=== PATIENT | male | born 1985 ===

== ENCOUNTER 2017-03-01 15:30 | Emergency (ER) | payer MEDICAID ==
[2017-03-01 15:30] VITALS: BMI 29.4
--- NOTE | 2017-03-01 16:01 | ED PDOC ---
Arrival/HPI - General Time Seen by Provider: 03/01/17 15:43 Historian: Patient - History of Present Illness Narrative History of Present Illness (Text): 03/01/17 16:03 31 y/o male, pmh including chronic bilateral knee pain, nkda, c/o bilateral knee pain x 2 days after heavy lifting and walking by moving the furniture. Pt. stated that the rt. knee joint is more painful, no calf pain, no fever or chills, no cold extremities, no dizziness, no numbness or tingling, no other medical or psychological complaints. Past Medical History - Provider Review Nursing Documentation Reviewed: Yes - Past History Past History: No Previous - Infectious Disease Hx of Infectious Diseases: None - Tetanus Immunization Tetanus Immunization: Unknown - Past Medical History Past Medical History: No Previous - Cardiac Hx Cardiac Disorders: No - Pulmonary Hx Respiratory Disorders: No - Neurological Hx Neurological Disorder: No - HEENT Hx HEENT Disorder: No - Renal Hx Renal Disorder: No - Endocrine/Metabolic Hx Endocrine Disorders: No - Hematological/Oncological Hx Blood Disorders: No - Integumentary Hx Dermatological Disorder: No - Musculoskeletal/Rheumatological Hx Back Pain: Yes Hx Falls: No Hx Fractures: Yes (left ankle with sx) - Gastrointestinal Hx Gastrointestinal Disorders: No - Genitourinary/Gynecological Hx Genitourinary Disorders: No - Psychiatric Hx Anxiety: Yes Hx Depression: Yes Hx Substance Use: No - Surgical History Hx Orthopedic Surgery: Yes (left ankle c/ screws) - Anesthesia Hx Anesthesia: Yes Hx Anesthesia Reactions: No - Suicidal Assessment Feels Threatened In Home Enviroment: No Family/Social History - Physician Review Nursing Documentation Reviewed: Yes Family/Social History: Unknown Family HX Smoking Status: Light Smoker < 10 Cigarettes Daily Hx Alcohol Use: No Hx Substance Use: No Hx Substance Use Treatment: No Allergies/Home Meds Allergies/Adverse Reactions: Allergies corn Allergy (Verified 10/26/16 10:04) HEADACHE peanut Allergy (Verified 10/26/16 10:04) ANAPHYLAXIS plantain Allergy (Verified 10/26/16 10:04) HEADACHE Review of Systems - Review of Systems Constitutional: absent: Fatigue, Fevers Eyes: absent: Vision Changes ENT: absent: Hearing Changes Respiratory: absent: Cough, Sputum Gastrointestinal: absent: Abdominal Pain, Nausea, Vomiting Musculoskeletal: Arthralgias, Joint Swelling. absent: Back Pain, Neck Pain, Myalgias Skin: absent: Rash, Pruritis, Skin Lesions Neurological: absent: Headache, Dizziness, Speech Changes, Facial Droop Physical Exam Vital Signs Temp Pulse Resp BP Pulse Ox 03/01/17 15:30 98.6 F 85 16 144/72 99 Pain Distress: None Mental Status: Positive for: Alert and Oriented X 3 - Systems Exam Head: Present: Atraumatic, Normocephalic Pupils: Present: PERRL Extroacular Muscles: Present: EOMI Conjunctiva: Present: Normal Ears: Present: NORMAL TM, Normal Canal. No: Erythema Mouth: Present: Moist Mucous Membranes Pharnyx: No: ERYTHEMA, EXUDATE, TONSILS ENLARGED, Peritonsilar Swelling, Uvular Deviation Nose (External): Present: Atraumatic. No: Abrasion, Contusion, Laceration Nose (Internal): Present: Normal Inspection, No Active Bleeding. No: Rhinorrhea , Septal Hematoma, Epistaxis Neck: Present: Normal Range of Motion, Trachea Midline. No: MIDLINE TENDERNESS , Paraspinal Tenderness, Lymphadenopathy Respiratory/Chest: Present: Clear to Auscultation, Good Air Exchange. No: Respiratory Distress, Accessory Muscle Use, Wheezes, Decreased Breath Sounds, Rales, Retracting, Rhonchi, Tachypneic Cardiovascular: Present: Regular Rate and Rhythm, Normal S1, S2. No: Murmurs Abdomen: Present: Normal Bowel Sounds. No: Tenderness, Distention, Peritoneal Signs Back: Present: Normal Inspection Upper Extremity: Present: Normal Inspection. No: Cyanosis, Edema Lower Extremity: Present: Normal Inspection, Other (Bilateral knees: +ttp on the medial aspect of the knee with mild swelling plus no erythematous and no streaking, lt. knee with no tenderness or swelling with no cellulitis or streaking, negative [place]me[place] signs, FROM without limitation, sensation intact,motor 5/5, +DPPT pulses, capillary refill< 2 seconds, neurovascular intact. ). No: Edema Neurological: Present: GCS=15, Speech Normal, Motor Func Grossly Intact, Gait Normal, Memory Normal Skin: Present: Warm, Dry, Normal Color. No: Rashes Psychiatric: Present: Alert, Oriented x 3, Normal Insight, Normal Concentration Medical Decision Making ED Course and Treatment: 03/01/17 16:00 -indomethacin -xrays -raysa wrap 03/01/17 16:19 -xray show no fracture or dislocation. -there is mild soft tissue bursa swelling, raysa wrap applied with neurovascular intact. -discharge home with indomethacin, raysa wrap, crutches, ice compression, follow up with your own pmd and orthopedic within 2 days for MRI follow up if the pain persist, return to the ER for any new or worsening signs or symptoms. - RAD Interpretation Radiology Orders: 03/01/17 16:01 KNEE W PATELLA BILAT 3 VIEW [RAD] Stat PROCEDURE: Bilateral Knee Radiographs. HISTORY: Bilateral knee pain, more on the rt COMPARISON: None. FINDINGS: BONES: Right Knee: Normal. No fracture. Left Knee: Normal. No fracture. JOINTS: Right Knee: Normal. No osteoarthritis. Left knee: Normal. No osteoarthritis. SOFT TISSUES: Right Knee: Normal. Left Knee: Normal. JOINT EFFUSION: There are moderate bilateral suprapatellar joint effusions. OTHER FINDINGS: None. IMPRESSION: No acute fracture, dislocation or bone destruction. Moderate bilateral suprapatellar joint effusions. Vegetable Cook: Radiologist - Medication Orders Current Medication Orders: Discontinued Medications Indomethacin (Indocin) 50 mg PO STAT STA Stop: 03/01/17 16:03 Last Admin: 03/01/17 16:26 Dose: 50 MG [facility] Pain Assessment Document 03/01/17 16:26 EQ (Rec: 03/01/17 16:26 EQ [id number]) Pain Reassessment Is this a pain reassessment? No - PA / PROJECT MANAGER/DESIGN MANAGER / Resident Statement / has reviewed & agrees with the documentation as recorded. Disposition/Present on Arrival - Present on Arrival Any Indicators Present on Arrival: No History of DVT/PE: No History of Uncontrolled Diabetes: No Urinary Catheter: No History of Decub. Ulcer: No History Surgical Site Infection Following: None - Disposition Have Diagnosis and Disposition been Completed?: Yes Diagnosis: Chronic knee pain, Bursitis Disposition: HOME/ ROUTINE Disposition Time: 16:13 Patient Plan: Discharge Condition: GOOD Additional Instructions: discharge home with indomethacin, raysa wrap, crutches, ice compression, follow up with your own pmd and orthopedic within 2 days for MRI follow up if the pain persist, return to the ER for any new or worsening signs or symptoms. Prescriptions: Indomethacin [Indocin] 50 mg PO TID PRN #30 cap PRN Reason: Other Referrals: Elliot Robin MD [Primary Care Provider] - Follow up with primary Dixon Miner DO [Staff Provider] - Follow up with primary [facility] [place] - Follow up with primary Forms: WORK NOTE
[2017-03-01 16:05] VITALS: BP 144/72; PULSE 85; RESP 16; TEMP 98.6; O2SAT 99
--- NOTE | 2017-03-01 16:45 | RAD ---
PROCEDURE: Bilateral Knee Radiographs. HISTORY: Bilateral knee pain, more on the rt COMPARISON: None. FINDINGS: BONES: Right Knee: Normal. No fracture. Left Knee: Normal. No fracture. JOINTS: Right Knee: Normal. No osteoarthritis. Left knee: Normal. No osteoarthritis. SOFT TISSUES: Right Knee: Normal. Left Knee: Normal. JOINT EFFUSION: There are moderate bilateral suprapatellar joint effusions. OTHER FINDINGS: None. IMPRESSION: No acute fracture, dislocation or bone destruction. Moderate bilateral suprapatellar joint effusions.
== END 2017-03-01 16:38 | disposition home or self-care (01) ==
LOC: ED 15:30
DX: M25.561 Pain in right knee (principal); M25.562 Pain in left knee; M71.5 Other bursitis, not elsewhere classified

== ENCOUNTER 2017-07-19 09:15 | Emergency (ER) | payer MEDICAID ==
[2017-07-19 09:16] VITALS: BMI 29.4
[2017-07-19 09:31] VITALS: RESP 18; TEMP 98.4; O2SAT 98
--- NOTE | 2017-07-19 09:51 | ED PDOC ---
Arrival/HPI - General Historian: Patient - History of Present Illness Time/Duration: 1 week Quality: Aching Context: Home - General Chief Complaint: Upper Extremity Problem/Injury Time Seen by Provider: 07/19/17 09:45 - History of Present Illness Narrative History of Present Illness (Text): 07/19/17 09:48 This 31 yo male presents to this ED c/o left shoulder pain x 7 days. Patient stated he felt pain after exercising. Patient feels his left shoulder is dislocated. Denies other complain. (David Castano) Past Medical History - Provider Review Nursing Documentation Reviewed: Yes - Past History Past History: No Previous - Infectious Disease Hx of Infectious Diseases: None - Tetanus Immunization Tetanus Immunization: Unknown - Past Medical History Past Medical History: No Previous - Cardiac Hx Cardiac Disorders: No - Pulmonary Hx Respiratory Disorders: No - Neurological Hx Neurological Disorder: No - HEENT Hx HEENT Disorder: No - Renal Hx Renal Disorder: No - Endocrine/Metabolic Hx Endocrine Disorders: No - Hematological/Oncological Hx Blood Disorders: No - Integumentary Hx Dermatological Disorder: No - Musculoskeletal/Rheumatological Hx Back Pain: Yes Hx Falls: No Hx Fractures: Yes (left ankle with sx) - Gastrointestinal Hx Gastrointestinal Disorders: No - Genitourinary/Gynecological Hx Genitourinary Disorders: No - Psychiatric Hx Anxiety: Yes Hx Depression: Yes Hx Substance Use: No - Surgical History Hx Orthopedic Surgery: Yes (left ankle c/ screws) - Anesthesia Hx Anesthesia: Yes Hx Anesthesia Reactions: No Hx Malignant Hyperthermia: No - Suicidal Assessment Feels Threatened In Home Enviroment: No Family/Social History - Physician Review Nursing Documentation Reviewed: Yes Family/Social History: Other (non-contributory) Smoking Status: Former Smoker Hx Alcohol Use: No Hx Substance Use: No Hx Substance Use Treatment: No Allergies/Home Meds Allergies/Adverse Reactions: Allergies corn Allergy (Verified 10/26/16 10:04) HEADACHE peanut Allergy (Verified 10/26/16 10:04) ANAPHYLAXIS plantain Allergy (Verified 10/26/16 10:04) HEADACHE Review of Systems - Review of Systems Constitutional: Normal. absent: Fatigue, Weight Change, Fevers Eyes: Normal ENT: Normal Respiratory: Normal Cardiovascular: Normal Gastrointestinal: Normal Genitourinary Male: Normal Musculoskeletal: Other (see hpi) Skin: Normal Neurological: Normal Endocrine: Normal Hemo/Lymphatic: Normal Psychiatric: Normal Physical Exam Temperature: Afebrile Blood Pressure: Normal Pulse: Regular Respiratory Rate: Normal Appearance: Positive for: Well-Appearing, Non-Toxic, Comfortable Pain Distress: None Mental Status: Positive for: Alert and Oriented X 3 - Systems Exam Head: Present: Atraumatic, Normocephalic Pupils: Present: PERRL Extroacular Muscles: Present: EOMI Conjunctiva: Present: Normal Mouth: Present: Moist Mucous Membranes Upper Extremity: Present: Normal Inspection, Normal ROM, NORMAL PULSES, Tenderness (mild tenderness over left anterior shoulder), Neurovascularly Intact , Capillary Refill < 2s. No: Cyanosis, Edema Lower Extremity: Present: Normal Inspection, NORMAL PULSES, Normal ROM. No: Edema, CALF TENDERNESS Neurological: Present: GCS=15, CN II-XII Intact, Speech Normal, Motor Func Grossly Intact Skin: Present: Warm, Dry, Normal Color. No: Rashes Psychiatric: Present: Alert, Oriented x 3, Normal Insight, Normal Concentration Medical Decision Making Re-evaluation Time: 10:34 Reassessment Condition: Re-examined, Improved ED Course and Treatment: 07/19/17 10:34 Re-evaluation. Patient feels better. Discussed results and plan with patient who expresses understanding. All questions answered and there is agreement with the plan to discharge home with instructions. Patient stable for discharge. Return if symptoms persist or worsen. (David Castano) I was available for consultation during PA evaluation. The chart was reviewed by me, and I agree with disposition. The documented history was done by the physician hood fitter. The documented procedures were done by the physician hood fitter. (Bob Valencia) - RAD Interpretation Narrative RAD Interpretations (Text): 07/19/17 10:34 Shoulder x-rays: No fx or sublux. (David Castano) Radiology Orders: 07/19/17 09:45 SHOULDER LEFT [RAD] Stat - Medication Orders Current Medication Orders: Discontinued Medications Ketorolac Tromethamine (Toradol) 30 mg IM STAT STA Stop: 07/19/17 09:46 Last Admin: 07/19/17 10:09 Dose: 30 mg Disposition/Present on Arrival - Present on Arrival Any Indicators Present on Arrival: No History of DVT/PE: No History of Uncontrolled Diabetes: No Urinary Catheter: No History of Decub. Ulcer: No History Surgical Site Infection Following: None - Disposition Have Diagnosis and Disposition been Completed?: Yes Disposition Time: 10:35 Patient Plan: Discharge - Disposition Diagnosis: Left shoulder strain Disposition: HOME/ ROUTINE Discharge Instructions (ExitCare): Shoulder Pain (ED) Additional Instructions: Call private doctor for follow up visit in 1-2 days. Take medication as instructed. Return to emergency if symptoms worsen. Prescriptions: Famotidine [Pepcid] 40 mg PO DAILY #10 tablet Naproxen 500 mg PO BID PRN #14 tab PRN Reason: Pain, Severe (8-10) Referrals: Elliot Robin MD [Primary Care Provider] - Follow up with primary Dixon Miner DO [Staff Provider] - Follow up with primary Forms: [employer] (Indonesian)
[2017-07-19 11:04] VITALS: BP 140/70; PULSE 71
--- NOTE | 2017-07-19 11:55 | RAD ---
PROCEDURE: Radiographs of the Left Shoulder HISTORY: Left arm Pain. No history of recent/ related trauma provided COMPARISON: No prior. FINDINGS: BONES: Normal. No fracture. JOINTS: Normal. Glenohumeral and acromioclavicular joints preserved. No osteoarthritis. SOFT TISSUES: Normal. OTHER FINDINGS: None. IMPRESSION: No significant or acute findings to account for/ related to the clinical presentation. Concordant results with the preliminary interpretation rendered by the emergency department physician procedure.
== END 2017-07-19 11:04 | disposition home or self-care (01) ==
LOC: ED 09:15
DX: S46.912A Strain of unspecified muscle, fascia and tendon at shoulder and upper arm level, left arm, initial encounter (principal); X50.0XXA Overexertion from strenuous movement or load, initial encounter; Y93.B9 Activity, other involving muscle strengthening exercises; Y92.89 Other specified places as the place of occurrence of the external cause
CPT/HCPCS: 73030; 96372; 99284; J1885

== ENCOUNTER 2018-07-03 15:16 | Observation (INO) | payer MEDICAID ==
[2018-07-03 15:16] VITALS: BMI 29.4
[2018-07-03 17:21] LABS: BASO # 0.02 K/mm3 (0.0-2.0); BASO % 0.3 % (0.0-3.0); EOS # 0.3 (0.0-0.7); EOS % 3.6 % (1.5-5.0); GRAN # 4.72 (1.4-6.5); GRAN % 61.4 % (50.0-68.0); HEMOGLOBIN 14.6 g/dL (14.0-18.0); LYMPH # 2.2 (1.2-3.4); LYMPH % 29.2 % (22.0-35.0); MEAN CELL VOLUME 86.9 fl (80.0-105.0); MEAN CORPUSCULAR HEMOGLOBIN 29.4 pg (25.0-35.0); MEAN CORPUSCULAR HGB CONC 33.8 g/dl (31.0-37.0); MEAN PLATELET VOLUME 9.8 fl (7.0-11.0); MONO # 0.4 (0.1-0.6); MONO % 5.5 % (1.0-6.0); RBC 4.97 10^6/uL (3.5-6.1); RED CELL DISTRIBUTION WIDTH 13.5 % (11.5-14.5); WHITE BLOOD COUNT 7.7 10^3/ul (4.5-11.0)
[2018-07-03 17:29] LABS: ALB/GLOB RATIO 1.3 (1.1-1.8); ALBUMIN 4.6 g/dL (3.0-4.8); ALT/SGPT 35 U/L (7-56); AST/SGOT 30 U/L (17-59); BLOOD UREA NITROGEN 14 mg/dL (7-21); CALCIUM 9.5 mg/dL (8.4-10.5); GFR NON-AFRICAN AMERICAN > 60
--- NOTE | 2018-07-03 17:59 | US ---
HISTORY: Leg pain and swelling. Evaluate for DVT PHYSICIAN(S): Wolf Adkins MD. TECHNIQUE: Duplex sonography and color-flow Doppler with graded compression were used to evaluate the deep venous systems of both lower extremities. FINDINGS: The visualized deep venous systems of both lower extremities are sonographically normal and compressible. Normal wave forms and augmentation are seen. There is no sonographic evidence for deep venous thrombosis in the visualized segments of both lower extremities. IMPRESSION: No sonographic evidence for deep venous thrombosis in the visualized segments of both lower extremities.
--- NOTE | 2018-07-03 19:32 | ED PDOC ---
"Arrival/HPI - General Historian: Patient - History of Present Illness Symptom Onset: Gradual Symptom Course: Worsening Quality: Aching <Alta Campbell - Last Filed: 07/03/18 22:26> <Sj Burden - Last Filed: 07/06/18 18:04> - General Chief Complaint: Lower Extremity Problem/Injury Time Seen by Provider: 07/03/18 16:38 - History of Present Illness Narrative History of Present Illness (Text): 07/03/18 19:32 32-year-old male presents today with a 2 month history of bilateral hand paresthesias to three-day history of worsening lower leg pain and weakness. Patient states he feels like he has a cramping pain in the thighs and he feels his left from the hips down his legs are heavy. He states that when he walks he feels like they are going to give out. He denies numbness in the extremities. He denies bladder or bowel incontinence. Patient states he has a history of chronic back pain but denies any pain at present time. Patient denies chest pain or shortness of breath. Denies neck pain. Denies headache or dizziness. Patient denies blurred vision. No other complaints (Alta Campbell) Past Medical History - Provider Review Nursing Documentation Reviewed: Yes - Travel History Have you recently traveled outside [place] w/in the past 3 mons?: No - Past History Past History: No Previous - Infectious Disease Hx of Infectious Diseases: None - Tetanus Immunization Tetanus Immunization: Unknown - Past Medical History Past Medical History: No Previous - Cardiac Hx Cardiac Disorders: No - Pulmonary Hx Respiratory Disorders: No - Neurological Hx Neurological Disorder: No - HEENT Hx HEENT Disorder: No - Renal Hx Renal Disorder: No - Endocrine/Metabolic Hx Endocrine Disorders: No - Hematological/Oncological Hx Blood Disorders: No - Integumentary Hx Dermatological Disorder: No - Musculoskeletal/Rheumatological Hx Back Pain: Yes Hx Falls: No Hx Fractures: Yes (left ankle with sx) - Gastrointestinal Hx Gastrointestinal Disorders: No - Genitourinary/Gynecological Hx Genitourinary Disorders: No - Psychiatric Hx Anxiety: Yes Hx Depression: Yes Hx Substance Use: No - Surgical History Hx Orthopedic Surgery: Yes (left ankle c/ screws) - Anesthesia Hx Anesthesia: Yes Hx Anesthesia Reactions: No Hx Malignant Hyperthermia: No - Suicidal Assessment Feels Threatened In Home Enviroment: No <Alta Campbell - Last Filed: 07/03/18 22:26> Family/Social History - Physician Review Nursing Documentation Reviewed: Yes Family/Social History: Unknown Family HX Smoking Status: Former Smoker Hx Alcohol Use: No Hx Substance Use: No Hx Substance Use Treatment: No <Alta Campbell - Last Filed: 07/03/18 22:26> Allergies/Home Meds <Alta Campbell - Last Filed: 07/03/18 22:26> <Sj Burden - Last Filed: 07/06/18 18:04> Allergies/Adverse Reactions: Allergies corn Allergy (Verified 10/26/16 10:04) HEADACHE peanut Allergy (Verified 10/26/16 10:04) ANAPHYLAXIS plantain Allergy (Verified 10/26/16 10:04) HEADACHE Review of Systems - Review of Systems Constitutional: absent: Fatigue, Fevers Respiratory: absent: SOB, Cough Cardiovascular: absent: Chest Pain, Palpitations Gastrointestinal: absent: Abdominal Pain, Constipation, Diarrhea, Vomiting Genitourinary Male: absent: Dysuria, Frequency, Hematuria Musculoskeletal: Arthralgias Neurological: Other (parasthesias, lower leg pain/weakness). absent: Headache, Dizziness Psychiatric: absent: Anxiety, Depression, Suicidal Ideation <Alta Campbell - Last Filed: 07/03/18 22:26> Physical Exam Vital Signs Reviewed: Yes Temperature: Afebrile Blood Pressure: Normal Pulse: Regular Respiratory Rate: Normal Appearance: Positive for: Well-Appearing, Non-Toxic, Comfortable Pain Distress: None Mental Status: Positive for: Alert and Oriented X 3 - Systems Exam Head: Present: Atraumatic Mouth: Present: Moist Mucous Membranes Neck: Present: Normal Range of Motion Respiratory/Chest: Present: Clear to Auscultation, Good Air Exchange. No: Respiratory Distress, Accessory Muscle Use Cardiovascular: Present: Regular Rate and Rhythm, Normal S1, S2. No: Murmurs Abdomen: No: Tenderness, Distention, Peritoneal Signs, Rebound, Guarding Back: Present: Normal Inspection. No: Midline Tenderness, Paraspinal Tenderness Upper Extremity: Present: Normal Inspection, Normal ROM, NORMAL PULSES, Neurovascularly Intact, Capillary Refill < 2s. No: Tenderness, Swelling, Erythema Lower Extremity: Present: NORMAL PULSES, Normal ROM, Neurovascularly Intact, Capillary Refill < 2 s. No: CALF TENDERNESS, Tenderness, Swelling, Erythema, Deformity Neurological: Present: GCS=15, Speech Normal, Motor Func Grossly Intact, Normal Sensory Function Skin: Present: Warm, Dry, Normal Color. No: Rashes Psychiatric: Present: Alert, Oriented x 3 <Alta Campbell T - Last Filed: 07/03/18 22:26> Vital Signs Temp Pulse Resp BP Pulse Ox 07/03/18 19:27 68 18 119/65 99 07/03/18 16:45 78 18 117/69 99 07/03/18 15:49 98.9 F 82 16 119/72 99 Medical Decision Making <Alta Campbell - Last Filed: 07/03/18 22:26> <Sj Burden - Last Filed: 07/06/18 18:04> ED Course and Treatment: 07/03/18 21:01 32yr old c/o bilateral leg weakness x 3 days and parasthesias in the hands bilaterally x 2 months. no recent trauma or injury. 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 No areas of abnormal signal. No mass lesion. No mass effect. Thalamus and hypothalamus are unremarkable. Cerebellum is unremarkable. No areas of abnormal signal on the gradient echo images to suggest intracranial hemorrhage. Ventricles: Unremarkable. No ventriculomegaly. Bones/joints: Unremarkable. Sinuses: Small retention cysts in bilateral maxillary sinuses and bilateral ethmoid sinuses. No fluid levels. Mastoid air cells: Unremarkable as visualized. No mastoid effusion. Orbits: Unremarkable as visualized. Sella: Midline structures are unremarkable. Sella and suprasellar cistern are unremarkable. IMPRESSION: No evidence of pathology. MRI C-spine;FINDINGS: Vertebrae: C1-C2: Odontoid process is unremarkable. No significant pannus formation. No canal stenosis. No acute fracture. Spinal cord: Limited visualization of a central cord lesion at T2-T3 level measuring 2.4 mm in AP dimension and 2.1 cm in craniocaudal dimension. This lesion is not included in [id number] on the axial cuts. Lesion is best visualized on sagittal image 8. Remainder of the cord in cervical spine is unremarkable. Soft tissues: Unremarkable. Vasculature: Unremarkable. Normal vertebral artery flow voids are visualized. DISCS/SPINAL CANAL/NEURAL FORAMINA: C2-C3: No evidence of disc protrusion or extrusion. No evidence of significant disc bulge. No canal stenosis. No neuroforaminal stenosis. C3-C4: No evidence of disc protrusion or extrusion. No evidence of significant disc bulge. No canal stenosis. No neuroforaminal stenosis. C4-C5: No evidence of disc protrusion or extrusion. No evidence of significant disc bulge. No canal stenosis. No neuroforaminal stenosis. C5-C6: 2 mm posterior disc osteophyte. No canal stenosis. No neural foraminal narrowing. No disc protrusion or extrusion. ANAHI REYES | Preliminary Radiology Report C6-C7: No evidence of disc protrusion or extrusion. No evidence of significant disc bulge. No canal stenosis. No neuroforaminal stenosis. C7-T1: No evidence of disc protrusion or extrusion. No evidence of significant disc bulge. No canal stenosis. No neuroforaminal stenosis. Upper thoracic spine: IMPRESSION: Limited visualization of a central cord lesion at T2-T3 level as described above. Finding likely represents a syrinx. White matter pathology such as multiple sclerosis should also be considered in the differential diagnosis. Recommend MRI of thoracic spine for further evaluation. MRI Lumbar spine; FINDINGS: Vertebrae: See below. Spinal cord: Unremarkable. Normal signal. Soft tissues: Unremarkable. DISCS/SPINAL CANAL/NEURAL FORAMINA: L1-L2: No evidence of disc protrusion or extrusion. No evidence of significant disc bulge. No canal stenosis. No neuroforaminal stenosis. L2-L3: No evidence of disc protrusion or extrusion. No evidence of significant disc bulge. No canal stenosis. No neuroforaminal stenosis. L3-L4: No evidence of disc protrusion or extrusion. No evidence of significant disc bulge. No canal stenosis. No neuroforaminal stenosis. L4-L5: No evidence of disc protrusion or extrusion. No evidence of significant disc bulge. No canal stenosis. No neuroforaminal stenosis. L5-S1: Degenerative disc disease with loss of disc height. Degenerative endplate changes seen. Mixed Modic type I and type II changes seen in the endplates. 5 mm posterior disc osteophyte and bulge. No significant canal stenosis. Moderate bilateral neural foraminal narrowing. IMPRESSION: Degenerative disc disease at L5-S1 as described above with moderate bilateral neural foraminal narrowing. No significant canal stenosis. all results discussed with patient and partner; case was discussed with dr. Rosenberg in depth; advised him of incompletely imaged central cord lesion at T2-T3 requiring further imaging; advised him of the need for MRI of thoracic spine. will admit the patient observational status for neuro evaluation and MRI of thoracic spine. impression; spinal cord lesion, abnormal MRI admit observational status to Med/surg (Alta Campbell) - Lab Interpretations Lab Results: 07/03/18 16:50 07/03/18 16:50 Lab Results 07/04/18 06:30: Free T4 1.05 07/04/18 06:30: RPR Nonreactive 07/04/18 06:30: Lyme Disease Screen <0.90 07/04/18 06:30: TEZ Nuclear Membr Pat Negative 07/04/18 06:30: Whole Blood Lead <1 07/04/18 06:30: HIV 1&2 Ag/Ab, 4th Gen Nonreactive 07/04/18 06:30: TSH 3rd Generation 3.42 07/04/18 06:30: ESR 4 07/04/18 06:30: C-Reactive Protein < 5.00, Vitamin B12 321, Folate 10.4 07/04/18 06:00: 25-OH Vitamin D Total 20.4 L 07/03/18 20:10: Urine Color Yellow, Urine Appearance Clear, Urine pH 7.0, Ur Specific Jal 1.015, Urine Protein Negative, Urine Glucose (UA) Negative, Urine Ketones Negative, Urine Blood Negative, Urine Nitrate Negative, Urine Bilirubin Negative, Urine Urobilinogen 0.2, Ur Leukocyte Esterase Negative 07/03/18 16:50: WBC 7.7, RBC 4.97, Hgb 14.6, Hct 43.2, MCV 86.9, MCH 29.4, MCHC 33.8, RDW 13.5, Plt Count 268, MPV 9.8, Gran % 61.4, Lymph % (Auto) 29.2, [place] % (Auto) 5.5, Eos % (Auto) 3.6, Baso % (Auto) 0.3, Gran # 4.72, Lymph # (Auto) 2.2, [place] # (Auto) 0.4, Eos # (Auto) 0.3, Baso # (Auto) 0.02 07/03/18 16:50: Sodium 141, Potassium 4.4, Chloride 100, Carbon Dioxide 30, Anion Gap 16, BUN 14, Creatinine 1.1, Est GFR ( Amer) > 60, Est GFR (Non- Af Amer) > 60, Random Glucose 87, Calcium 9.5, Magnesium 2.1, Total Bilirubin 0.3, AST 30, ALT 35, Alkaline Phosphatase 70, Total Creatine Kinase 219, Total Protein 8.2, Albumin 4.6, Globulin 3.6, Albumin/Globulin Ratio 1.3 - RAD Interpretation Radiology Orders: 07/03/18 16:59 BRAIN WITHOUT CONTRAST [MRI] Stat SPINAL CANAL CERVICAL W/O CONT [MRI] Stat SPINAL CANAL LUMBAR W/O CONT [MRI] Stat 07/03/18 17:01 DUPLEX LOWER EXTRM VEIN BILAT [US] Stat 07/04/18 22:12 SPINAL THORACIC W/WO RUDY [MRI] Stat - Medication Orders Current Medication Orders: Discontinued Medications Acetaminophen (Tylenol 325mg Tab) 650 mg PO Q6H PRN PRN Reason: Headache Last Admin: 07/05/18 09:45 Dose: [address] [facility] Pain/Vitals Document 07/05/18 09:45 [facility] (Rec: 07/05/18 09:46 [facility] [id number]) Pain Reassessment Is This A Pain ReAssessment? No Sleep Is patient sleeping during reassessment? No Presence of Pain Presence of Pain Yes Location Pain Location Body Cardiovascular Physician Assistant Description Dull Intensity 6 Pain Behavior Guarding Aggravating Factors None Re-Assess: [facility] Pain/Vitals Document 07/05/18 10:45 [facility] [place] (Rec: 07/05/18 12:23 [id number] Pain Reassessment Is This A Pain ReAssessment? Yes Sleep Is patient sleeping during reassessment? No Presence of Pain Presence of Pain Yes Pain Scale Used Pain Scale Used Numeric Location Intensity 3 Cholecalciferol (Vitamin D) 2,000 intlu PO DAILY [facility] Last Admin: 07/05/18 13:17 Dose: 2,000 intlu Dexamethasone (Decadron) 2 mg PO Q12 [facility] Enoxaparin Sodium (Lovenox) 40 mg SC DAILY [facility] PRN Reason: Protocol Last Admin: 07/05/18 09:43 Dose: 40 mg Subcutaneous Administrations Document 07/05/18 09:43 [facility] [place] (Rec: 07/05/18 09:43 [id number]) Injection Site MAR Injection Site Right Abdomen Charges for Administration # of Subcutaneous Administrations 1 Gabapentin (Neurontin) 300 mg PO TID [facility] PRN Reason: Protocol Last Admin: 07/05/18 17:16 Dose: 300 mg Behavioural Document 07/05/18 17:16 [facility] [place] (Rec: 07/05/18 17:16 [id number]) Maintenance Maintenance Dose Yes Nonmedicinal Nonmedicinal Interventions Activity Gabapentin (Neurontin) 300 mg PO STAT [facility] PRN Reason: Protocol Stop: 07/03/18 23:56 Last Admin: 07/04/18 00:01 Dose: 300 mg Behavioural Document 07/04/18 00:01 [facility] (Rec: 07/04/18 00:01 [facility] [id number]) Maintenance Maintenance Dose Yes Sodium Chloride (Sodium Chloride 0.9%) 1,000 mls @ 100 mls/hr IV .Q10H STA Stop: 07/04/18 08:09 Last Admin: 07/03/18 22:25 Dose: 100 mls/hr eMAR Start Stop Document 07/03/18 22:25 [facility] (Rec: 07/03/18 22:26 [facility] [id number]) Intravenous Solution Start Date 07/03/18 Start Time 22:26 Ketorolac Tromethamine (Toradol) 30 mg IVP STAT [facility] Stop: 07/03/18 20:21 Last Admin: 07/03/18 20:34 Dose: 30 mg [facility] Pain Assessment Document 07/03/18 20:34 [facility] (Rec: 07/03/18 20:35 [facility] [id number]) Pain Reassessment Is this a pain reassessment? No Sleep Is patient sleeping during reassessment? No Presence of Pain Presence of Pain Yes Pain Scale Used Pain Scale Used Numeric Location Left, Right or Bilateral Bilateral Pain Location Body Site Leg Description Description Intermittent Intensity of Pain at present 7 Pain Behavior Guarding IVP Administration Document 07/03/18 20:34 [facility] (Rec: 07/03/18 20:35 [facility] [id number]) Charges for Administration # of IVP Administrations 1 Re-Assess: [facility] Pain Assessment Document 07/03/18 21:34 [facility] (Rec: 07/03/18 21:46 [facility] [id number]) Pain Reassessment Is this a pain reassessment? Yes Sleep Is patient sleeping during reassessment? No Presence of Pain Presence of Pain Yes Pain Scale Used Pain Scale Used Numeric Location Left, Right or Bilateral Bilateral Pain Location Body Site Leg Description Intensity of Pain at present 2 Ketorolac Tromethamine (Toradol) 15 mg IVP Q6 PRN PRN Reason: Pain, moderate (4-7) Last Admin: 07/04/18 17:25 Dose: [address] [facility] Pain Assessment Document 07/04/18 17:25 [facility] [place] (Rec: 07/04/18 17:44 [id number]) Pain Reassessment Is this a pain reassessment? No Sleep Is patient sleeping during reassessment? No Presence of Pain Presence of Pain Yes Pain Scale Used Pain Scale Used Numeric Location Upper or Lower Lower Pain Location Body Site Leg Description Description Cramping Intensity of Pain at present 6 Aggravating Factors None Alleviating Factors/Management Medication Techniques Alleviating Factors Medication IVP Administration Document 07/04/18 17:25 [facility] [place] (Rec: 07/04/18 17:44 [id number]) Charges for Administration # of IVP Administrations 1 Re-Assess: [facility] Pain Assessment Document 07/04/18 18:25 [facility] [place] (Rec: 07/04/18 19:36 [facility] [place] [id number]) Pain Reassessment Is this a pain reassessment? Yes Sleep Is patient sleeping during reassessment? No Presence of Pain Presence of Pain Yes Pain Scale Used Pain Scale Used Numeric Description Intensity of Pain at present 4 Pantoprazole Sodium (Protonix Inj) 40 mg IVP DAILY [facility] Last Admin: 07/04/18 09:24 Dose: 40 mg IVP Administration Document 07/04/18 09:24 [facility] [place] (Rec: 07/04/18 09:24 [id number] Charges for Administration # of IVP Administrations 1 Pantoprazole Sodium (Protonix Ec Tab) 40 mg PO ACB [facility] Last Admin: 07/05/18 09:43 Dose: 40 mg Pneumococcal Polyvalent Vaccine (Pneumovax 23 Vaccine) 0.5 ml IM .ONCE ONE Stop: 07/04/18 01:16 Trazodone HCl (Desyrel) 50 mg PO STAT STA Stop: 07/04/18 22:24 Last Admin: 07/04/18 23:07 Dose: 50 mg - PA / [employer] MECHANIC / Resident Statement / has reviewed & agrees with the documentation as recorded. / has examined the patient and agrees with the treatment plan. <Sj Burden - Last Filed: 07/06/18 18:04> Disposition/Present on Arrival - Present on Arrival Any Indicators Present on Arrival: No History of DVT/PE: No History of Uncontrolled Diabetes: No Urinary Catheter: No History of Decub. Ulcer: No History Surgical Site Infection Following: None - Disposition Have Diagnosis and Disposition been Completed?: Yes Disposition Time: 21:00 Patient Plan: Observation <Alta Campbell - Last Filed: 07/03/18 22:26> <Sj Burden - Last Filed: 07/06/18 18:04> - Disposition Diagnosis: Spinal cord lesion, Abnormal MRI Disposition: HOSPITALIZED Condition: FAIR"
[2018-07-03 20:19] LABS: URINE BILIRUBIN NEGATIVE (NEGATIVE); URINE BLOOD NEGATIVE (NEGATIVE); URINE GLUCOSE (UA) NEGATIVE (NEGATIVE); URINE LEUKOCYTE ESTERASE NEGATIVE Leu/uL (NEGATIVE); URINE PROTEIN NEGATIVE mg/dL (<30 mg/dL); URINE UROBILINOGEN 0.2 E.U./dL (<1 E.U./dL)
[2018-07-03 20:22] LABS: URINE APPEARANCE CLEAR (CLEAR); URINE COLOR YELLOW (YELLOW)
[2018-07-03] MEDS ORDERED: Sodium Chloride 0.9% 1,000 ML IV STA (22:10)
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
[2018-07-04] MEDS ORDERED: Pneumococcal 23-Valent Vaccine IM ONE (01:15)
[2018-07-04] MEDS: Enoxaparin 40 mg Syringe SC SCH (09:27)
--- NOTE | 2018-07-04 10:54 | MRI ---
Date of service: 07/03/2018 PROCEDURE: MRI BRAIN WITHOUT CONTRAST HISTORY: b/l hand paresthesias, r/o lesion COMPARISON: None available. TECHNIQUE: Multiplanar, multisequence MR images of the brain were obtained without intravenous contrast enhancement. FINDINGS: HEMORRHAGE: None DWI: No evidence of an acute or early subacute infarction. BRAIN PARENCHYMA: Weeks-white matter differentiation is preserved. There is no mass, mass effect or abnormal extra-axial fluid collection. There is no territorial infarction. The midline sagittal structures are normal. VENTRICLES: The ventricles are normal in size, shape and configuration. CRANIUM: There is normal bone marrow signal pattern. ORBITS: Grossly unremarkable. PARANASAL SINUSES/MASTOIDS: Small retention cysts/ polyps in the maxillary sinuses, more on the left and moderate mucosal thickening in the ethmoid air cells. VASCULAR SYSTEM: There are normal signal voids in the larger intracranial arteries. OTHER FINDINGS: None. IMPRESSION: No acute intracranial abnormality. Chronic ethmoid and maxillary sinusitis. A preliminary report was provided by [facility] services.
--- NOTE | 2018-07-04 11:02 | MRI ---
Date of service: 07/03/2018 PROCEDURE: MR CERVICAL SPINE WITHOUT CONTRAST HISTORY: Bilateral hand paresthesias, r/o lesion COMPARISON: None available. TECHNIQUE: Multiecho multiplanar sequences were performed through the cervical spine without the use of intravenous contrast. FINDINGS: There is straightening of the cervical spine with loss of normal cervical lordosis. Vertebral alignment is normal. Bone marrow signal is within normal limits. There is no acute fracture or spondylolisthesis. The craniocervical junction is normal. The atlantoaxial joint is normal. The cervical cord is normal in contour, caliber and has normal intrinsic signal. Incompletely imaged and characterized is central cord signal abnormality at T2 and T3. The paraspinous soft tissues are normal. C2-C3: No disc herniation, spinal canal stenosis or neural foraminal narrowing. C3-C4: No disc herniation, spinal canal stenosis or neural foraminal narrowing. C4-C5: No disc herniation, spinal canal stenosis or neural foraminal narrowing. C5-C6: Broad-based disc osteophyte complex with mild right neural foraminal narrowing. No spinal canal stenosis. C6-C7: Broad-based disc osteophyte complex without spinal canal stenosis or neural foraminal narrowing. C7-T1: Broad-based disc osteophyte complex without disc herniation, spinal canal stenosis or neural foraminal narrowing. OTHER FINDINGS: None. IMPRESSION: Broad-based disc osteophyte complexes from C5-6 -C7-T1, worse at C5-6 with mild right neural foraminal narrowing. No spinal canal stenosis. Straightening of the cervical spine may be positional or related to muscle spasm. . Incompletely imaged and characterized central cord signal abnormality at T2 and T3. A dedicated MRI of the thoracic spine without and with intravenous contrast would be helpful for further evaluation. A preliminary report was provided by [facility] services.
--- NOTE | 2018-07-04 11:10 | MRI ---
Date of service: 07/03/2018 PROCEDURE: MR LUMBAR SPINE WITHOUT CONTRAST HISTORY: b/l lower leg weakness COMPARISON: None available. TECHNIQUE: Multiecho multiplanar sequences were performed through the lumbar spine without the use of intravenous contrast. FINDINGS: There is 5 mm degenerative retrolisthesis of L5 on S1. There is normal lumbar lordosis. There is no acute fracture or spondylolysis. There are degenerative endplate marrow changes at L5-S1, otherwise bone marrow signal is within normal limits. The conus medullaris terminates at a normal level and the nerve roots of cauda equina are normal. The paraspinous soft tissues are normal. Imaged portion of the retroperitoneum is within normal limits. T12-L1: No disc herniation, spinal canal stenosis or neural foraminal narrowing. L1-2: No disc herniation, spinal canal stenosis or neural foraminal narrowing. L2-3: No disc herniation, spinal canal stenosis or neural foraminal narrowing. L3-4: No disc herniation, spinal canal stenosis or neural foraminal narrowing. L4-5: Mild posterior disc bulge without spinal canal stenosis or neural foraminal narrowing. L5-S1: Diffuse posterior disc bulge with superimposed broad-based central disc protrusion without spinal canal stenosis. Mild bilateral facet arthropathy contribute to moderate neural foraminal narrowing. OTHER FINDINGS: None. IMPRESSION: Mild degenerative disc disease at L5-S1 with a diffuse disc bulge and superimposed broad-based central disc protrusion without spinal canal stenosis. Mild bilateral facet arthropathy contribute to moderate neural foraminal narrowing.
[2018-07-04 13:15] LABS: FOLATE 10.4 ng/mL
--- NOTE | 2018-07-04 13:56 | CP.PCM.PN ---
Subjective - Date & Time of Evaluation Date of Evaluation: 07/04/18 Time of Evaluation: 08:30 - Subjective Subjective: Internal Medicine Progress Note for Dr. Addie Cornejo PGY1 32M seen and evaluated at bedside this morning. No acute events overnight. Patient is able to ambulate. He complains of pain in his extremities particularly the right thigh however no back pain or paraspinal tenderness. Lower extremity is tender with no visible swelling. States his legs feel heavier than before. Denies fever, chills, difficulty ambulating, dizziness, headache, nausea, vomiting, confusion, shortness of breath, cough, chest pain, palpitations, or abdominal pain. Objective - Vital Signs/Intake and Output Vital Signs (last 24 hours): Temp Pulse Resp BP Pulse Ox 97.7 F 70 18 115/69 99 07/04/18 06:00 07/04/18 06:00 07/04/18 06:00 07/04/18 06:00 07/04/18 06:00 - Medications Medications: Current Medications Enoxaparin Sodium (Lovenox) 40 mg SC DAILY [facility] PRN Reason: Protocol Last Admin: 07/04/18 09:27 Dose: 40 mg Gabapentin (Neurontin) 300 mg PO TID [facility] PRN Reason: Protocol Last Admin: 07/04/18 09:26 Dose: 300 mg Ketorolac Tromethamine (Toradol) 15 mg IVP Q6 PRN PRN Reason: Pain, moderate (4-7) Last Admin: 07/04/18 09:25 Dose: 15 mg Pantoprazole Sodium (Protonix Ec Tab) 40 mg PO ACB [facility] - Constitutional Appears: Well, Non-toxic, No Acute Distress - Head Exam Head Exam: ATRAUMATIC, NORMAL INSPECTION, NORMOCEPHALIC - Eye Exam Eye Exam: EOMI Pupil Exam: PERRL - ENT Exam ENT Exam: Mucous Membranes Moist - Respiratory Exam Respiratory Exam: Clear to Ausculation Bilateral, NORMAL BREATHING PATTERN - Cardiovascular Exam Cardiovascular Exam: REGULAR RHYTHM, +S1, +S2. absent: Murmur - GI/Abdominal Exam GI & Abdominal Exam: Soft, Normal Bowel Sounds. absent: Tenderness - Extremities Exam Extremities Exam: Calf Tenderness, Full ROM, Normal Capillary Refill, Tenderness. absent: Joint Swelling, Pedal Edema - Back Exam Back Exam: absent: muscle spasm, paraspinal tenderness, tenderness, vertebral tenderness - Neurological Exam Neurological Exam: Alert, Awake, Normal Gait, Oriented x3 Neuro motor strength exam: Left Upper Extremity: 5, Right Upper Extremity: 5, Left Lower Extremity: 5, Right Lower Extremity: 5 - Psychiatric Exam Psychiatric exam: Normal Affect, Normal Mood - Skin Skin Exam: Dry, Intact, Normal Color, Warm Assessment and Plan - Assessment and Plan (Free Text) Assessment: 32M, PMH of herniated cervical and lumbar discs, arthritis, gastritis, and HLD, presented with new onset numbness, tingling, weakness, and sharp stabbing pain in the lower extremities bilaterally Plan: 1. New Onset Lower Extremity Numbness, Tingling, Weakness, and Pain - Syringomyelia vs. MS vs. Herniated Discs - Brain MRI: no acute intracranial abnormality - Cervical MRI: disc osteophyte worse at C5-6 with mild right foraminal narrowing, no spinal stenosis - Lumbar MRI: diffuse disc bulge and central disc protrusion without spinal stenosis - Gabapentin 300 TID - Toradol 15 Q6 - Neuro checks Q4 - Orthostatics - f/u Arsenic, Lead, HIV, TEZ, RF, Lyme, RPR studies - Pending Thoracic MRI - Neurology, Dr. Draper consulted, recommendations appreciated - PT evaluation pending 2. Hx of Gastritis - Currently asymptomatic - Continue Protonix 40mg GI: Protonix DVT: SCDs Diet: Regular Dispo: Follow up with Dr. Griffith, PMD, within 1 week of discharge Case reviewed and discussed with Dr. Addie Cornejo PGY1
[2018-07-04] MEDS ORDERED: Gadodiamide 287 MG/ML VIAL (15ML) IV ONE (20:57)
[2018-07-04 22:27] VITALS: RESP 20; TEMP 97.8; O2SAT 99
--- NOTE | 2018-07-04 23:11 | CP.PCM.CON ---
History of Present Illness - History of Present Illness History of Present Illness: Fly Earl PGY2 Neurology Consult Note for Dr. Draper Mr. Toledo is a 32-year-old male with a PMH of herniated disks, gastritis, arthritis and HLD who presented with "heaviness" in both his thighs, localized around the knees mostly. He states that this has been going on for 4 days, and that he has also had sharp pain and numbness/tingling in his hands 2 months ago. 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 The discomfort persists despite the patient not working aggressively in the past week. He does not describe the sensation as pain, but more heaviness and discomfort in his knees and muscle insertions from his quad muscles, exacerbated when he is walking or putting weight on his legs. The patient denies any history of blurred vision, urinary or bowel incontinence, tremors, changes in vision/hearing, fevers/chills, shortness of breath or chest pain, or any focal weakness. 12 point ROS was reviewed and is otherwise a normal. PMH: As above PSH: Plate and screws in the left ankle Meds: None Allergies: Peanuts SHX: Denied smoking, EtOH or drug use: SHX: Mom, arthritis. Review of Systems - Review of Systems All systems: reviewed and no additional remarkable complaints except (as per HPI ) Past Patient History - Infectious Disease Hx of Infectious Diseases: None - Tetanus Immunizations Tetanus Immunization: Unknown - Past Social History Smoking Status: Former Smoker - CARDIAC Hx Cardiac Disorders: No - PULMONARY Hx Respiratory Disorders: No - NEUROLOGICAL Hx Neurological Disorder: No - HEENT Hx HEENT Problems: No - RENAL Hx Chronic Kidney Disease: No - ENDOCRINE/METABOLIC Hx Endocrine Disorders: No - HEMATOLOGICAL/ONCOLOGICAL Hx Blood Disorders: No - INTEGUMENTARY Hx Dermatological Problems: No - MUSCULOSKELETAL/RHEUMATOLOGICAL Hx Back Pain: Yes Hx Falls: No Hx Fractures: Yes (left ankle with sx) - GASTROINTESTINAL Hx Gastrointestinal Disorders: No - GENITOURINARY/GYNECOLOGICAL Hx Genitourinary Disorders: No - PSYCHIATRIC Hx Anxiety: Yes Hx Depression: Yes Hx Substance Use: No - SURGICAL HISTORY Hx Orthopedic Surgery: Yes (left ankle c/ screws) - ANESTHESIA Hx Anesthesia: Yes Hx Anesthesia Reactions: No Hx Malignant Hyperthermia: No Meds Allergies/Adverse Reactions: Allergies Allergy/AdvReac Type Severity Reaction Status Date / Time corn Allergy HEADACHE Verified 10/26/16 10:04 peanut Allergy ANAPHYLAXIS Verified 10/26/16 10:04 plantain Allergy HEADACHE Verified 10/26/16 10:04 - Medications Medications: Current Medications Enoxaparin Sodium (Lovenox) 40 mg SC DAILY [facility] PRN Reason: Protocol Last Admin: 07/04/18 09:27 Dose: 40 mg Gabapentin (Neurontin) 300 mg PO TID [facility] PRN Reason: Protocol Last Admin: 07/04/18 17:43 Dose: 300 mg Ketorolac Tromethamine (Toradol) 15 mg IVP Q6 PRN PRN Reason: Pain, moderate (4-7) Last Admin: 07/04/18 17:25 Dose: 15 mg Pantoprazole Sodium (Protonix Ec Tab) 40 mg PO ACB [facility] Physical Exam - Constitutional Appears: Well, No Acute Distress - Head Exam Head Exam: NORMAL INSPECTION - Eye Exam Eye Exam: Normal appearance, PERRL - ENT Exam ENT Exam: Mucous Membranes Moist - Neck Exam Neck exam: Positive for: Full Rom, Normal Inspection. Negative for: Meningismus , Tenderness - Respiratory Exam Respiratory Exam: NORMAL BREATHING PATTERN - Cardiovascular Exam Cardiovascular Exam: RRR, +S1, +S2 - GI/Abdominal Exam GI & Abdominal Exam: Soft - Extremities Exam Extremities exam: Positive for: full ROM, normal inspection - Neurological Exam Neurological exam: Alert, CN II-XII Intact, Normal Gait (limited only by discomfort by patient), Oriented x3 Additional comments: SLR + for pain in back muscle strength 5/5 x4 extremities - Psychiatric Exam Psychiatric exam: Normal Mood Results - Vital Signs Recent Vital Signs: Last Vital Signs Temp 97.8 F 07/04/18 22:00 Pulse 69 07/04/18 22:00 Resp 20 07/04/18 22:00 BP 119/78 07/04/18 22:00 Pulse Ox 99 07/04/18 22:00 - Labs Result Diagrams: 07/03/18 16:50 07/03/18 16:50 Assessment & Plan - Assessment and Plan (Free Text) Assessment: 32-year-old male with a PMH of arthritis, multilevel herniated disks, and gastritis who presents with multifocal areas of muscle aches and heaviness not associated with weakness or radiation. Differentials include but are not limited to MS, myopathies, arthritis, transverse myelitis or peripheral neuropathies. MRI of brain was reviewed and was unremarkable. MRI C-spine showed osteophytes with no stenosis, but was positive for a syrinx. MRI of L- spine showed DJD and L5-S1 with moderate bilateral neural foraminal narrowing. Plan: - MRI T-spine with contrast is recommended - Patient should be evaluated with EMG and NCS on discharge with Dr. Jackson - Monitor for changes in vital signs or respiratory distress - PT eval - GI and DVT prophylaxis - Neurontin - Further recs per Dr. Draper Case was reviewed and discussed with attending, Dr. Baron Earl PGY2
[2018-07-05] MEDS ORDERED: Pantoprazole 40 mg EC Tab PO SCH (07:30)
[2018-07-05 07:31] VITALS: BP 122/77; PULSE 72
[2018-07-05] MEDS: Enoxaparin 40 mg Syringe SC SCH (09:43)
[2018-07-05] MEDS ORDERED: Cholecalciferol 1,000 INTLU TAB PO SCH (11:00)
--- NOTE | 2018-07-05 13:47 | MRI ---
Date of service: 07/04/2018 PROCEDURE: MR THORACIC SPINE WITH AND WITHOUT CONTRAST HISTORY: Syringomyelia COMPARISON: None available. TECHNIQUE: Multiecho multiplanar sequences were performed through the thoracic spine with and without the use of intravenous contrast. 15 mL Omniscan was injected intravenously. FINDINGS: ALIGNMENT: Normal thoracic spinal alignment. Normal thoracic kyphosis. VERTEBRA: Vertebral body height are preserved. MARROW: Marrow signal unremarkable. PARASPINAL SOFT TISSUES: Paraspinous soft tissues are normal. CORD: There is segmental mild syringomyelia from T2-T5. The maximum anterior-posterior dimension of the syrinx is 2 mm. The remaining cord is normal in contour, caliber and has normal intrinsic signal. No intramedullary or leptomeningeal enhancement. DISCS: Mild posterior disc bulges in the mid thoracic spine and small left paracentral disc protrusions at T5-6 and T7-8. No spinal canal stenosis, or neuroforaminal narrowing. ENHANCEMENT: No abnormal enhancement. OTHER FINDINGS: None. 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 No abnormal cord enhancement. Mild left paracentral disc protrusions at T5-6 and T7-8. No cord compression or spinal canal stenosis. A preliminary report was provided by [facility] services.
--- NOTE | 2018-07-05 15:07 | CP.PCM.PN ---
Subjective - Date & Time of Evaluation Date of Evaluation: 07/05/18 Time of Evaluation: 15:03 - Subjective Subjective: Palmer Cavazos PGY1 Progress Note for Dr. Lacey Mr. Toledo was examined at bedside this morning. He reported some b/l leg pain and heaviness, but denied numbness/tingling. He reported some lower back pain that he attributed to positioning in the bed. He denied dizziness, chest pain, shortness of breath, nausea, vomiting, diarrhea. Objective - Vital Signs/Intake and Output Vital Signs (last 24 hours): Temp Pulse Resp BP Pulse Ox 97.8 F 72 20 122/77 99 07/05/18 06:00 07/05/18 06:00 07/05/18 06:00 07/05/18 06:00 07/05/18 06:00 Intake and Output: 07/05/18 07/05/18 06:59 18:59 Intake Total 180 1600 Balance 180 1600 - Medications Medications: Current Medications Acetaminophen (Tylenol 325mg Tab) 650 mg PO Q6H PRN PRN Reason: Headache Last Admin: 07/05/18 09:45 Dose: 650 mg Cholecalciferol (Vitamin D) 2,000 intlu PO DAILY [facility] Last Admin: 07/05/18 13:17 Dose: 2,000 intlu Enoxaparin Sodium (Lovenox) 40 mg SC DAILY [facility] PRN Reason: Protocol Last Admin: 07/05/18 09:43 Dose: 40 mg Gabapentin (Neurontin) 300 mg PO TID [facility] PRN Reason: Protocol Last Admin: 07/05/18 13:17 Dose: 300 mg Ketorolac Tromethamine (Toradol) 15 mg IVP Q6 PRN PRN Reason: Pain, moderate (4-7) Last Admin: 07/04/18 17:25 Dose: 15 mg Pantoprazole Sodium (Protonix Ec Tab) 40 mg PO ACB [facility] Last Admin: 07/05/18 09:43 Dose: 40 mg - Constitutional Appears: Well, No Acute Distress - Head Exam Head Exam: ATRAUMATIC, NORMOCEPHALIC - Eye Exam Eye Exam: EOMI, PERRL - Respiratory Exam Respiratory Exam: Clear to Ausculation Bilateral, NORMAL BREATHING PATTERN - Cardiovascular Exam Cardiovascular Exam: REGULAR RHYTHM, +S1, +S2 - GI/Abdominal Exam GI & Abdominal Exam: Soft, Normal Bowel Sounds. absent: Tenderness - Extremities Exam Additional comments: sensation intact in b/l LE pain to palpation of anterior b/l lower legs - Back Exam Back Exam: paraspinal tenderness Additional comments: tenderness to palpation of b/l paraspinal muscles - Neurological Exam Neurological Exam: Alert, Awake, Oriented x3. absent: Motor Sensory Deficit - Psychiatric Exam Psychiatric exam: Normal Affect, Normal Mood Assessment and Plan - Assessment and Plan (Free Text) Assessment: 32M, PMH of herniated cervical and lumbar discs, arthritis, gastritis, and HLD, presented with new onset numbness, tingling, weakness, and sharp stabbing pain in the lower extremities bilaterally Plan: Syringomyelia - Thoracic MRI: syringomyelia T2-5, and mild disc protrusions T5-6 and 7-8 - Brain MRI: no acute intracranial abnormality - Cervical MRI: disc osteophyte worse at C5-6 with mild right foraminal narrowing, no spinal stenosis - Lumbar MRI: diffuse disc bulge and central disc protrusion without spinal stenosis - start decadron 2mg q12h - continue Gabapentin 300 TID - continue Toradol 15 Q6 - Neuro checks Q4 - TEZ, Lyme, RPR negative - f/u Arsenic, Lead, HIV, RPR studies - Neurology, Dr. Draper consulted, recs appreciated - Neurosurgery, Dr. Becerril consulted, f/u recs - PT evaluation pending Vit D Deficiency - Vit D 20.4 - Start Vit D 2000u Hx of Gastritis - Currently asymptomatic - Continue Protonix 40mg GI: Protonix DVT: SCDs Diet: Regular Case reviewed and discussed with Dr. Lacey
--- NOTE | 2018-07-05 16:31 | CP.PCM.DIS ---
<Palmer Cavazos - Last Filed: 07/05/18 16:29> Provider - Provider Date of Admission: 07/04/18 13:42 Attending physician: Janet Lacey DO Primary care physician: Promise Martin MD Consults: Neurology Neurosurgery Time Spent in preparation of Discharge (in minutes): 70 Hospital Course - Lab Results Lab Results: Most Recent Lab Values WBC 7.7 10^3/ul (4.5-11.0) 07/03/18 16:50 RBC 4.97 10^6/uL (3.5-6.1) 07/03/18 16:50 Hgb 14.6 g/dL (14.0-18.0) 07/03/18 16:50 Hct 43.2 % (42.0-52.0) 07/03/18 16:50 MCV 86.9 fl (80.0-105.0) 07/03/18 16:50 MCH 29.4 pg (25.0-35.0) 07/03/18 16:50 MCHC 33.8 g/dl (31.0-37.0) 07/03/18 16:50 RDW 13.5 % (11.5-14.5) 07/03/18 16:50 Plt Count 268 10^3/uL (120.0-450.0) 07/03/18 16:50 MPV 9.8 fl (7.0-11.0) 07/03/18 16:50 Gran % 61.4 % (50.0-68.0) 07/03/18 16:50 Lymph % (Auto) 29.2 % (22.0-35.0) 07/03/18 16:50 [place] % (Auto) 5.5 % (1.0-6.0) 07/03/18 16:50 Eos % (Auto) 3.6 % (1.5-5.0) 07/03/18 16:50 Baso % (Auto) 0.3 % (0.0-3.0) 07/03/18 16:50 Gran # 4.72 (1.4-6.5) 07/03/18 16:50 Lymph # (Auto) 2.2 (1.2-3.4) 07/03/18 16:50 [place] # (Auto) 0.4 (0.1-0.6) 07/03/18 16:50 Eos # (Auto) 0.3 (0.0-0.7) 07/03/18 16:50 Baso # (Auto) 0.02 K/mm3 (0.0-2.0) 07/03/18 16:50 ESR 4 mm/hr (0.0-15.0) 07/04/18 06:30 Sodium 141 mmol/L (132-148) 07/03/18 16:50 Potassium 4.4 mmol/L (3.6-5.0) 07/03/18 16:50 Chloride 100 mmol/L (98-107) 07/03/18 16:50 Carbon Dioxide 30 mmol/L (21-33) 07/03/18 16:50 Anion Gap 16 (10-20) 07/03/18 16:50 BUN 14 mg/dL (7-21) 07/03/18 16:50 Creatinine 1.1 mg/dl (0.8-1.5) 07/03/18 16:50 Est GFR ( Amer) > 60 07/03/18 16:50 Est GFR (Non-Af Amer) > 60 07/03/18 16:50 Random Glucose 87 mg/dL (70-110) 07/03/18 16:50 Calcium 9.5 mg/dL (8.4-10.5) 07/03/18 16:50 Magnesium 2.1 mg/dL (1.7-2.2) 07/03/18 16:50 Total Bilirubin 0.3 mg/dL (0.2-1.3) 07/03/18 16:50 AST 30 U/L (17-59) 07/03/18 16:50 ALT 35 U/L (7-56) 07/03/18 16:50 Alkaline Phosphatase 70 U/L (38-126) 07/03/18 16:50 Total Creatine Kinase 219 U/L (35-230) 07/03/18 16:50 C-Reactive Protein < 5.00 mg/L (0.0-9.9) 07/04/18 06:30 Total Protein 8.2 g/dL (5.8-8.3) 07/03/18 16:50 Albumin 4.6 g/dL (3.0-4.8) 07/03/18 16:50 Globulin 3.6 gm/dL 07/03/18 16:50 Albumin/Globulin Ratio 1.3 (1.1-1.8) 07/03/18 16:50 Vitamin B12 321 pg/mL (239-931) 07/04/18 06:30 25-OH Vitamin D Total 20.4 NG/ML (30.0-100.0) L 07/04/18 06:00 Folate 10.4 ng/mL 07/04/18 06:30 Free T4 1.05 ng/dL (0.78-2.19) 07/04/18 06:30 TSH 3rd Generation 3.42 mIU/mL (0.46-4.68) 07/04/18 06:30 Urine Color Yellow (YELLOW) 07/03/18 20:10 Urine Appearance Clear (CLEAR) 07/03/18 20:10 Urine pH 7.0 (4.7-8.0) 07/03/18 20:10 Ur Specific [place] 1.015 (1.005-1.035) 07/03/18 20:10 Urine Protein Negative mg/dL (<30 mg/dL) 07/03/18 20:10 Urine Glucose (UA) Negative mg/dL (NEGATIVE) 07/03/18 20:10 Urine Ketones Negative mg/dL (NEGATIVE) 07/03/18 20:10 Urine Blood Negative (NEGATIVE) 07/03/18 20:10 Urine Nitrate Negative (NEGATIVE) 07/03/18 20:10 Urine Bilirubin Negative (NEGATIVE) 07/03/18 20:10 Urine Urobilinogen 0.2 E.U./dL (<1 E.U./dL) 07/03/18 20:10 Ur Leukocyte Esterase Negative Marissa/uL (NEGATIVE) 07/03/18 20:10 Whole Blood Lead <1 mcg/dL (<5) 07/04/18 06:30 TEZ Nuclear Membr Pat Negative (Negative) 07/04/18 06:30 RPR Nonreactive (NONREACTIVE) 07/04/18 06:30 Lyme Disease Screen <0.90 index 07/04/18 06:30 - Hospital Course Hospital Course: Mr. Toledo is a 32 year old male with past medical history of herniated discs in the cervical spine and lumbar spine, gastritis, arthritis, and hyperlipidemia presented with numbness, tingling, weakness, and sharp stabbing, unrelenting pain in bilateral lower extremities that started 4 days ago. Patient has never had symptoms such as these before. Patient denies remitting factors but palpation exacerbates the pain. Patient also has dizziness and fatigue that started around the same time as the bilateral lower extremity symptoms. Patient has had detention intermittent pressure like headaches, as well. Patient has minimal burning abdominal pain that he associates with gastritis. Patient reports sharp pain, and numbness/tingling of hands that started 2 months ago, as well. 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 Patient denies any history of blurred vision, urinary or bowel incontinence, tremors, abnormal movements of eyes, temperature changes in upper or lower extremities, fever, chest pain, shortness of breath, nausea, vomiting, constipation, diarrhea, dysuria, or hematuria. Patient has no history of diarrheal illness in past 2-3 months. 12-point ROS was negative except for what was listed above. In the ED, MRI Brain showed No areas of restricted diffusion seen in the brain or cerebellum to suggest acute infarct. No areas of abnormal signal. No mass lesion. No mass effect. Thalamus and hypothalamus are unremarkable. Cerebellum is unremarkable. No areas of abnormal signal on the gradient echo images to suggest intracranial hemorrhage. MRI C Spine showed C5-C6 2 mm posterior disc osteophyte. No canal stenosis. No neural foraminal narrowing. No disc protrusion or extrusion. Pt was admitted for syringomyelia vs. MS. Upon admission, pt reported improvement of symptoms. He still had some pain in the lower extremities. Neurology was consulted and recommended continuation of gabapentin and an MRI of T spine. They recommended decadron and f/u outpatient upon discharge. Neurosurgery was consulted and recommended outpatient follow up. MRI T-spine showed mild syringomyelia T2-5 and mild disc protrusions at T5-6, T7 -8. Pt was discharged with instructions to follow up outpatient and to take newly prescribed medications. Patient comprehended instructions. Discharge Exam - Head Exam Head Exam: ATRAUMATIC, NORMOCEPHALIC - Eye Exam Eye Exam: EOMI Pupil Exam: NORMAL ACCOMODATION - ENT Exam ENT Exam: Mucous Membranes Moist - Respiratory Exam Respiratory Exam: Clear to PA & Lateral, NORMAL BREATHING PATTERN - Cardiovascular Exam Cardiovascular Exam: REGULAR RHYTHM, +S1, +S2 - GI/Abdominal Exam GI & Abdominal Exam: Normal Bowel Sounds, Soft. absent: Tenderness - Extremities Exam Additional comments: sensation intact b/l tenderness to palpation of b/l anterior le - Back Exam Back exam: paraspinal tenderness - Neurological Exam Neurological exam: Alert, Oriented x3 - Psychiatric Exam Psychiatric exam: Normal Affect, Normal Mood Discharge Plan - Discharge Medications Prescriptions: Cholecalciferol [Vitamin D 1000 IU] 2,000 intlu PO DAILY #14 tab Gabapentin [Neurontin] 300 mg PO TID #42 cap - Follow Up Plan Condition: FAIR Disposition: HOME/ ROUTINE Instructions: Low Back Pain in Adults, High Cholesterol, Degenerative Disc Disease (DC) Additional Instructions: Please follow up with your primary care physician, Dr. Martin, within 3 to 5 days. Please follow up with Neurosurgery, Dr. Becerril, within 3 to 5 days. Please call on Saturday07/07/18 to make an appointment. Please follow up with Neurology, Dr. Draper, on July 21, 2018. Please call to make an appointment. Please take the following medications as prescribed: Neurontin three times a day. Vitamin D once a day, you will need repeat blood work with your primary care doctor to check your vitamin D levels. Decadron twice a day for 2 weeks. Then once a day for 2 weeks. Please return to the emergency department if symptoms return. Referrals: Irving Becerril MD [Staff Provider] - Zaid Draper MD [Staff Provider] - Promise Martin MD [Primary Care Provider] - <Janet Lacey - Last Filed: 07/06/18 15:33> Provider - Provider Date of Admission: 07/04/18 13:42 Attending physician: Janet Lacey DO Primary care physician: Promise Martin MD Hospital Course - Lab Results Lab Results: Most Recent Lab Values WBC 7.7 10^3/ul (4.5-11.0) 07/03/18 16:50 RBC 4.97 10^6/uL (3.5-6.1) 07/03/18 16:50 Hgb 14.6 g/dL (14.0-18.0) 07/03/18 16:50 Hct 43.2 % (42.0-52.0) 07/03/18 16:50 MCV 86.9 fl (80.0-105.0) 07/03/18 16:50 MCH 29.4 pg (25.0-35.0) 07/03/18 16:50 MCHC 33.8 g/dl (31.0-37.0) 07/03/18 16:50 RDW 13.5 % (11.5-14.5) 07/03/18 16:50 Plt Count 268 10^3/uL (120.0-450.0) 07/03/18 16:50 MPV 9.8 fl (7.0-11.0) 07/03/18 16:50 Gran % 61.4 % (50.0-68.0) 07/03/18 16:50 Lymph % (Auto) 29.2 % (22.0-35.0) 07/03/18 16:50 [place] % (Auto) 5.5 % (1.0-6.0) 07/03/18 16:50 Eos % (Auto) 3.6 % (1.5-5.0) 07/03/18 16:50 Baso % (Auto) 0.3 % (0.0-3.0) 07/03/18 16:50 Gran # 4.72 (1.4-6.5) 07/03/18 16:50 Lymph # (Auto) 2.2 (1.2-3.4) 07/03/18 16:50 [place] # (Auto) 0.4 (0.1-0.6) 07/03/18 16:50 Eos # (Auto) 0.3 (0.0-0.7) 07/03/18 16:50 Baso # (Auto) 0.02 K/mm3 (0.0-2.0) 07/03/18 16:50 ESR 4 mm/hr (0.0-15.0) 07/04/18 06:30 Sodium 141 mmol/L (132-148) 07/03/18 16:50 Potassium 4.4 mmol/L (3.6-5.0) 07/03/18 16:50 Chloride 100 mmol/L (98-107) 07/03/18 16:50 Carbon Dioxide 30 mmol/L (21-33) 07/03/18 16:50 Anion Gap 16 (10-20) 07/03/18 16:50 BUN 14 mg/dL (7-21) 07/03/18 16:50 Creatinine 1.1 mg/dl (0.8-1.5) 07/03/18 16:50 Est GFR ( Amer) > 60 07/03/18 16:50 Est GFR (Non-Af Amer) > 60 07/03/18 16:50 Random Glucose 87 mg/dL (70-110) 07/03/18 16:50 Calcium 9.5 mg/dL (8.4-10.5) 07/03/18 16:50 Magnesium 2.1 mg/dL (1.7-2.2) 07/03/18 16:50 Total Bilirubin 0.3 mg/dL (0.2-1.3) 07/03/18 16:50 AST 30 U/L (17-59) 07/03/18 16:50 ALT 35 U/L (7-56) 07/03/18 16:50 Alkaline Phosphatase 70 U/L (38-126) 07/03/18 16:50 Total Creatine Kinase 219 U/L (35-230) 07/03/18 16:50 C-Reactive Protein < 5.00 mg/L (0.0-9.9) 07/04/18 06:30 Total Protein 8.2 g/dL (5.8-8.3) 07/03/18 16:50 Albumin 4.6 g/dL (3.0-4.8) 07/03/18 16:50 Globulin 3.6 gm/dL 07/03/18 16:50 Albumin/Globulin Ratio 1.3 (1.1-1.8) 07/03/18 16:50 Vitamin B12 321 pg/mL (239-931) 07/04/18 06:30 25-OH Vitamin D Total 20.4 NG/ML (30.0-100.0) L 07/04/18 06:00 Folate 10.4 ng/mL 07/04/18 06:30 Free T4 1.05 ng/dL (0.78-2.19) 07/04/18 06:30 TSH 3rd Generation 3.42 mIU/mL (0.46-4.68) 07/04/18 06:30 Urine Color Yellow (YELLOW) 07/03/18 20:10 Urine Appearance Clear (CLEAR) 07/03/18 20:10 Urine pH 7.0 (4.7-8.0) 07/03/18 20:10 Ur Specific [place] 1.015 (1.005-1.035) 07/03/18 20:10 Urine Protein Negative mg/dL (<30 mg/dL) 07/03/18 20:10 Urine Glucose (UA) Negative mg/dL (NEGATIVE) 07/03/18 20:10 Urine Ketones Negative mg/dL (NEGATIVE) 07/03/18 20:10 Urine Blood Negative (NEGATIVE) 07/03/18 20:10 Urine Nitrate Negative (NEGATIVE) 07/03/18 20:10 Urine Bilirubin Negative (NEGATIVE) 07/03/18 20:10 Urine Urobilinogen 0.2 E.U./dL (<1 E.U./dL) 07/03/18 20:10 Ur Leukocyte Esterase Negative Marissa/uL (NEGATIVE) 07/03/18 20:10 Whole Blood Lead <1 mcg/dL (<5) 07/04/18 06:30 TEZ Nuclear Membr Pat Negative (Negative) 07/04/18 06:30 RPR Nonreactive (NONREACTIVE) 07/04/18 06:30 Lyme Disease Screen <0.90 index 07/04/18 06:30 HIV 1&2 Ag/Ab, 4th Gen Nonreactive (Nonreactive) 07/04/18 06:30 Attending/Attestation - Attestation I have personally seen and examined this patient.: Yes I have fully participated in the care of the patient.: Yes I have reviewed all pertinent clinical information, including history, physical exam and plan: Yes Notes (Text): Patient seen and examined by me with resident at 10:10AM 07/05/18. Case including discharge plan discussed with resident. Agree with above with following additions/corrections. Patient is a 32-year-old male with past medical history significant for herniated disks and cervical and lumbar spine, gastritis, arthritis, and hyperlipidemia that presented to the emergency room with numbness, tingling, weakness, and pain in the bilateral lower extremities. Please see H&P for full details. Patient was admitted bilateral lower extremity numbness, tingling, and pain. Neurology was consulted. AMA, HSV, Lyme within normal limits. Lead level less than 1. Brain MRI per radiologist showed no acute intracranial abnormality, chronic ethmoid and maxillary sinusitis. Cervical CT per radiologist showed right based disc osteophyte complexes from C5-C6, C7-T1, worse at C5-C6 out right neural foraminal narrowing, no spinal canal stenosis; straightening cervical spine may be positional or related to muscle spasm; incompletely imaged and characterized central cord signal abnormality at T2 and T3. Lumbar spine CT per radiologist showed mild degenerative disc disease at L5-S1 with a diffuse disc bulge and superimposed broad-based central disc protrusion without spinal canal stenosis; mild bilateral facet arthropathy contributed to moderate neural foraminal narrowing. Bilateral lower extremity venous Dopplers negative for DVT. Thoracic spine CT per radiologist shows mild segmental syringomyelia in the thoracic from T2-T5, no abnormal cord enhancement, mild left paracentral disc protrusions at T5-T6 and T7-T8, no cord compression or spinal canal stenosis. Patient was seen by neurology. Scans were reviewed with neurologist. Per neurologist Dr. Draper, patient to be discharged on a Decadron taper with follow-up in the office. Patient continued on gabapentin. Neurosurgery Dr. Becerril consulted. Per Dr. Becerril, patient to call 07/07/2018 for appointment in office. Patient was ambulating. Patient stated he felt better. Patient was found have vitamin D deficiency and was started on oral vitamin D. Patient was cleared for discharge by all consultants. Patient was discharged home. On day of discharge, patient stated he was feeling much better. Bilateral leg symptoms improved. Results from all scans reviewed with patient. No abdominal pain. No nausea or vomiting. No chest pain or shortness of breath. No fevers or chills. No headaches or dizziness. Physical exam: Gen: Awake and alert sitting up in bed in no acute distress HEENT: Normocephalic, atraumatic. Extraocular muscles intact, pupils equal reactive. No scleral icterus. Oropharynx is pink and moist. No pharyngeal erythema or exudate appreciated. Neck is supple. Cardiovascular: Normal rhythm. Normal S1, S2. No murmurs, rubs, or gallops appreciated Pulmonary: Normal respiratory effort. No rhonchi, rales or wheezing appreciated. Gastrointestinal: Soft, nontender, nondistended, positive bowel sounds all 4 quadrants, no guarding. Musculoskeletal: Normal range of motion all extremities, bilateral lower extremity tenderness. No CVA tenderness. Central nervous system: AAO x 3. CN 2-12 grossly intact. Dermatologic: Skin warm and dry Please see chart for full details. Follow up instructions. Patient to follow up with primary care physician, Dr. Martin, within 3 to 5 days. Patient to follow up with Neurosurgery, Dr. Becerril, within 3 to 5 days. Patient call on Saturday07/07/18 to make an appointment. Patient to follow up with Neurology, Dr. Draper, on July 21, 2018. Patient to call to make an appointment. All instructions explained to patient in detail. Patient both understands and agrees to all instructions. Time spent in discharging the patient including chart review, medication reconciliation, discussion with the patient, certified medical aide, consultants, and nursing staff was approximately 35 minutes.
== END 2018-07-05 18:30 | disposition home or self-care (01) ==
LOC: ED 15:16 → ERH 20:53 → 5RNO 21:54 → OBSVTOIN 07-04 13:42 → INTOOBSV 07-04 13:42
PROVIDERS: ADMIT Hospitalist; ATTEND Hospitalist
DX: M51.37 Other intervertebral disc degeneration, lumbosacral region (principal); M51.24 Other intervertebral disc displacement, thoracic region; M25.78 Osteophyte, vertebrae; M19.90 Unspecified osteoarthritis, unspecified site; E78.5 Hyperlipidemia, unspecified; E55.9 Vitamin D deficiency, unspecified; G95.0 Syringomyelia and syringobulbia; J32.0 Chronic maxillary sinusitis; J32.2 Chronic ethmoidal sinusitis; K29.70 Gastritis, unspecified, without bleeding; Z87.891 Personal history of nicotine dependence; Z87.892 Personal history of anaphylaxis; Z91.010 Allergy to peanuts; Z91.018 Allergy to other foods
CPT/HCPCS: 36415; 70551; 72141; 72148; 72157; 80053; 81003; 82175; 82306; 82550; 82607; 82746; 83520; 83655; 83735; 84439; 84443; 85025; 85651; 86038; 86140; 86592; 86618; 87389; 93970; 96374; 97116; 97162; 99285; A9579; C9113; G0378; G8978; G8979; J1650; J1885; J7030